=== PATIENT | male | born 1940 | race Caucasian/White ===

== ENCOUNTER → 2018-03-28 | Outpatient (CLI) | payer MEDICARE, BC ==
[~2018-03-28] MED LIST: AMLO5 PO; ASPI81CH PO; ATOR10 PO; FISH OIL 1,0001 EAC1 PO; FLAX PO; GLUCOSAMINE1000 MG PO; Hair, Skin & N1 EACH PO; PRIM50 PO
== END ==
LOC: LAB SHORT 14:49 → PLD 14:49
DX: L57.0 Actinic keratosis (principal)
CPT/HCPCS: 88305

== ENCOUNTER 2019-03-29 08:47 | Day surgery (SDC) | payer MEDICARE, BC ==
[~2019-03-29] VITALS: Ht 172.7 cm; Wt 126.6 kg
--- NOTE | 2019-03-29 09:13 | NUR ---
03/29/19 0913 Efrem Gleason PATIENT DETERMINED TO BE ASA APPROPRIATE FOR PROPOFOL SEDATION PRIOR TO START OF PROCEDURE BY . 3-LEAD EKG REVIEWED WITH PHYSICIAN PRIOR TO START OF PROCEDURE.PATIENT CONFIRMS NPO STATUS AND AGREES WITH SCHEDULED PROCEDURE.History, Chart, Medications and Allergies reviewed before start of procedure.MONITOR INTACT WITH CONTINUOUS PULSE OXIMETRY AND INTERMITTENT BP.O2 VIA N/C INTACT THROUGHOUT SEDATION/PROCEDURE.
[2019-03-29] MEDS ORDERED: PRIM250 PO (09:17)
--- NOTE | 2019-03-29 10:47 | NUR ---
RECEIVED REPORT FROM SARAH ELDRIDGE. ASSUMING CARE OF PT. IS AT BEDSIDE. PT IS SITTING UP DRINKING WATER. STATES NASUEA IS IMPROVIING. VSS.
--- NOTE | 2019-03-29 10:58 | NUR ---
Discharge instructions reviewed with patient. Patient verbalizes understanding. Copy given to patient to take home. HAS D/C PAPERWORK. PT DENIES PAIN. NAUSEA STILL THERE JUST A LITTLE. PT STATES WANTS TO GO HOME. NO QUESTIONS OR CONCERNS VOICED. PT HAS ALL PERSONAL BELONGINGS.
--- NOTE | 2019-03-29 11:04 | NUR ---
Patient States Post-Procedure ride home has been arranged. Discharged via wheelchair to private car for ride home.
== END 2019-03-29 22:39 | disposition home or self-care (01) ==
LOC: ORSCMMR 08:47 → ORD 09:30 → ORSCMMR 22:39
PROVIDERS: Internal Medicine Gastroenterology
PROC: 0DBL8ZX Excision of Transverse Colon, Via Natural or Artificial Opening Endoscopic, Diagnostic (ICD-10-PCS; principal; 2019-03-29 08:45)
PROC: 0DBH8ZX Excision of Cecum, Via Natural or Artificial Opening Endoscopic, Diagnostic (ICD-10-PCS; principal; 2019-03-29 08:45)
DX: Z12.11 Encounter for screening for malignant neoplasm of colon (principal); Z86.010 Personal history of colon polyps; C18.0 Malignant neoplasm of cecum; D12.0 Benign neoplasm of cecum; D12.3 Benign neoplasm of transverse colon; I10 Essential (primary) hypertension; E78.00 Pure hypercholesterolemia, unspecified; G25.0 Essential tremor; Z79.899 Other long term (current) drug therapy; E66.01 Morbid (severe) obesity due to excess calories; Z68.41 Body mass index [BMI] 40.0-44.9, adult
CPT/HCPCS: 88305; J2250; J2405; J3010; J7120

== ENCOUNTER → 2019-05-22 | Outpatient (CLI) | payer MEDICARE, BC ==
[~2019-05-22] MED LIST changes: +Hydrochlorothia25 MG PO; +PRIM250 PO
== END | disposition home or self-care (01) ==
LOC: LAB SHORT 07:52 → PLD 07:52
DX: C43.72 Malignant melanoma of left lower limb, including hip (principal)
CPT/HCPCS: 88305

== ENCOUNTER 2019-07-24 08:05 | Day surgery (SDC) | payer MEDICARE, BC ==
[~2019-07-24] VITALS: Ht 175.3 cm; Wt 127.4 kg
--- NOTE | 2019-07-24 10:10 | NUR ---
History, Chart, Medications and Allergies reviewed before start of procedure. Patient confirms NPO status and agrees with scheduled surgery. Lungs clear T/O to Auscultation. Patient reports completing Chlorhexadine shower X2 prior to admission to hospital. Patient States Post-Procedure ride home has been arranged. Pre-Op teaching done. Pt verbalizes understanding. PATIENT TOOK OFF HIS WATCH AND PLACED WITH HIS BELONGINGS.
--- NOTE | 2019-07-24 14:03 | NUR ---
Discharge instructions reviewed with patient. Patient verbalizes understanding. Copy given to patient to take home. Dressing to procedure site clean, dry, intact with no visible drainage, swelling, erythema or bruising noted. Patient up to Ambulate independently. Gait steady. Discharged via wheelchair to private car for ride home.
== END 2019-07-24 22:40 | disposition home or self-care (01) ==
LOC: NM 08:05 → ORSCMMR 08:05 → NM 09:00
PROVIDERS: Surgery
PROC: 07BJ0ZX Excision of Left Inguinal Lymphatic, Open Approach, Diagnostic (ICD-10-PCS; principal; 2019-07-24 10:15)
PROC: 0HBLXZX Excision of Left Lower Leg Skin, External Approach, Diagnostic (ICD-10-PCS; principal; 2019-07-24 10:15)
PROC: 0HQLXZZ Repair Left Lower Leg Skin, External Approach (ICD-10-PCS; principal; 2019-07-24 10:15)
DX: C43.72 Malignant melanoma of left lower limb, including hip (principal); D36.0 Benign neoplasm of lymph nodes; I10 Essential (primary) hypertension; E66.01 Morbid (severe) obesity due to excess calories; Z68.41 Body mass index [BMI] 40.0-44.9, adult; Z79.899 Other long term (current) drug therapy
CPT/HCPCS: 78195; 88305; 88307; 88341; 88342; A9270-GY; A9541; J0690; J1100; J1885; J2250; J2405; J2704; J3010; J7120; Q9968

== ENCOUNTER 2020-08-19 11:06 | Observation (INO) | payer MEDICARE, BC ==
[~2020-08-19] VITALS: Ht 175.3 cm; Wt 131.5 kg
[2020-08-19 11:31] LABS: BASOPHILS ABSOLUTE AUTO 0.02 K/mm3 (0.00-0.23); BASOPHILS PERCENT AUTO 0 % (0-2); EOSINOPHILS ABSOLUTE AUTO 0.18 K/mm3 (0.00-0.68); EOSINOPHILS PERCENT AUTO 4 % (0-6); Hematocrit 44.9 % (37.0-53.0); Hemoglobin 14.6 g/dL (13.5-17.5); IMMATURE GRAN ABSOLUTE AUTO 0.02 K/mm3 (0.00-0.10); IMMATURE GRAN PERCENT AUTO 0 % (0-1); LYMPHOCYTES ABSOLUTE AUTO 1.51 K/mm3 (0.84-5.20); LYMPHOCYTES PERCENT AUTO 30 % (21-46); MONOCYTES ABSOLUTE AUTO 0.42 K/mm3 (0.16-1.47); MONOCYTES PERCENT AUTO 9 % (4-13); Mean Corpuscular HGB 27.4 pg (26.0-34.0); Mean Corpuscular HGB Conc 32.5 g/dL (31.5-36.5); Mean Corpuscular Volume 84 fL (80-100); Mean Platelet Volume 9.1 fL (9.1-12.4); NEUTROPHILS ABSOLUTE AUTO 2.82 K/mm3 (1.96-9.15); NEUTROPHILS PERCENT AUTO 57 % (41-73); Platelet Count 172 K/mm3 (150-400); RDW Coefficient Variation 14.1 % (11.7-14.2); RDW Standard Deviation 42.8 fL (35.1-46.3); Red Blood Cell Count 5.32 M/mm3 (4.30-5.90); White Blood Cell Count 4.97 K/mm3 (4.00-11.30)
[2020-08-19 11:52] LABS: Alanine Aminotransfer (ALT/SGP 25 U/L (12-78); Albumin, Blood 3.6 g/dL (3.4-5.0); Albumin/Globulin Ratio 0.9 (0.8-1.8); Alk Phos 74 U/L (50-136); Anion Gap 8 mmol/L (6-16); Aspartate Aminotrans (AST/SGOT 21 U/L (12-37); Bilirubin, Total 0.4 mg/dL (0.1-1.0); Blood Urea Nitrogen 20 mg/dL (8-24); Bun/Creatinine Ratio 15.4 (12.0-20.0); CO2, Blood 25 mmol/L (21-32); Calcium, Blood 8.9 mg/dL (8.5-10.1); Chloride, Blood 107 mmol/L (98-108); Globulin, Blood 3.8 g/dL (2.2-4.0); Glomerular Filtration Rate 57 (60-); Glucose, Blood 101 mg/dL (70-99); Potassium, Blood 3.8 mmol/L (3.5-5.5); Sodium, Blood 140 mmol/L (136-145); Total Protein, Blood 7.4 g/dL (6.4-8.2); Troponin I <0.015 ng/mL (0.000-0.040)
[2020-08-19] MEDS ORDERED: Primidone50 MG PO ×2 (16:35→16:36)
[2020-08-19] MEDS ORDERED: PROPRANOLOL HCL80 MG PO (16:36)
[2020-08-19] MEDS ORDERED: Mobic15 MG PO (16:36)
[2020-08-19 17:59] LABS: Source, Urine Voided
[2020-08-19 18:06] LABS: Bilirubin, Urine Neg (Neg); Blood, Urine Neg (Neg); Glucose Qualitative, Urine Neg (Neg); Ketones, Urine Neg (Neg); Leukocyte Esterase, Urine Neg (Neg); Nitrite, Urine Neg (Neg); Protein, Urine Neg (Neg); Specific Gravity, Urine 1.015 (1.003-1.022); Urobilinogen, Urine NORM (Normal)
[2020-08-19 18:15] LABS: Appearance, Urine Clear (Clear); Color, Urine Yellow (P-Yellow)
--- NOTE | 2020-08-19 19:10 | NUR ---
ASSUMED CARE RECEIVED REPORT FROM SARAH GANDHI. ASSUMED CARE OF PT. RESTING COMFORTABLY AT THIS TIME. NO S/S ACUTE DISTRESS NOTED. RESPS E/U. DENIES DIZZINESS AT THIS TIME. DENIES NEEDS. CALL LIGHT, POSSESSIONS IN REACH. CONTINUE TO MONITOR.
--- NOTE | 2020-08-19 19:18 | NUR ---
SHIFT SUMMARY: PATIENT ADMIT (OBS) FROM ED THIS SHIFT. PT A&O; CALM AND COOPERATIVE WITH CARE. NO C/O PAIN \SINCE ARRIVAL ON MEDICAL. PT REPORTS NAUSEA & DIZZINESS UPON STANDING & WITH AMBULATION. LR @ 75 X1L; MRA PLANNED FOR 08/20. REPORT GIVEN TO ONCOMING RN.
[2020-08-20 05:15] LABS: BASOPHILS ABSOLUTE AUTO 0.04 K/mm3 (0.00-0.23); BASOPHILS PERCENT AUTO 1 % (0-2); EOSINOPHILS ABSOLUTE AUTO 0.14 K/mm3 (0.00-0.68); EOSINOPHILS PERCENT AUTO 2 % (0-6); Hematocrit 43.8 % (37.0-53.0); Hemoglobin 14.1 g/dL (13.5-17.5); IMMATURE GRAN ABSOLUTE AUTO 0.02 K/mm3 (0.00-0.10); IMMATURE GRAN PERCENT AUTO 0 % (0-1); LYMPHOCYTES ABSOLUTE AUTO 1.61 K/mm3 (0.84-5.20); LYMPHOCYTES PERCENT AUTO 26 % (21-46); MONOCYTES PERCENT AUTO 8 % (4-13); Mean Corpuscular HGB 27.4 pg (26.0-34.0); Mean Corpuscular HGB Conc 32.2 g/dL (31.5-36.5); Mean Corpuscular Volume 85 fL (80-100); Mean Platelet Volume 9.7 fL (9.1-12.4); NEUTROPHILS ABSOLUTE AUTO 3.98 K/mm3 (1.96-9.15); NEUTROPHILS PERCENT AUTO 63 % (41-73); Platelet Count 203 K/mm3 (150-400); RDW Coefficient Variation 14.2 % (11.7-14.2); RDW Standard Deviation 43.7 fL (35.1-46.3); Red Blood Cell Count 5.15 M/mm3 (4.30-5.90); White Blood Cell Count 6.29 K/mm3 (4.00-11.30)
[2020-08-20 05:48] LABS: Anion Gap 7 mmol/L (6-16); Blood Urea Nitrogen 18 mg/dL (8-24); Bun/Creatinine Ratio 15.8 (12.0-20.0); CO2, Blood 25 mmol/L (21-32); Calcium, Blood 8.6 mg/dL (8.5-10.1); Chloride, Blood 107 mmol/L (98-108); Creatinine, Blood 1.14 mg/dL (0.60-1.20); Glomerular Filtration Rate >60 (60-); Glucose, Blood 98 mg/dL (70-99); Potassium, Blood 3.8 mmol/L (3.5-5.5); Sodium, Blood 139 mmol/L (136-145)
--- NOTE | 2020-08-20 07:46 | NUR ---
SHIFT SUMMARY PT HAS HAD AN UNEVENTFUL NIGHT. SLEPT T/O. VSS. NO C/O DIZZINESS. WAS MONITORED EVERY 1-2 HOURS WITH NEEDS MET. DENIES NEEDS AT THIS TIME. CALL LIGHT, POSSESSIONS IN REACH, WILL CONTINUE TO MONITOR.
--- NOTE | 2020-08-20 09:33 | NUR ---
PT GOT UP AND AMBULATED TO THE RESTROOM THIS AM WITH SBA. UPON GETTING BACK TO THE BED PT REPORTS NAUSEA. PT NOTED TO BE CLAMMY T/O. PT DENIES ANY CHEST PAIN BUT DOES REPORT DIZZINESS. TELE SR AT 62 AT THIS TIME. ORTHOSTATICS COMPLETED AFTERWARDS. PRN ZOFRAN ADMINISTERED.
--- NOTE | 2020-08-20 17:29 | NUR ---
PT TO MRI
--- NOTE | 2020-08-20 18:18 | NUR ---
SHIFT SUMMARY NO ACUTE CHANGES T/O SHIFT. A&OX4. ORTHOSTATIC BP COMPLETED THIS AM PER ORDER, PT REPORTED BECOMING DIZZY FROM THE LYING TO SITTING POSITION. HE ALSO BECAME FAIRLY NAUSEOUS T/O THE SHIFT AND ZOFRAN WAS PROVIDED. MECLIZINE WAS PRESCRIBED FOR POSSIBLE VERTIGO. PT VOMITED SHORTLY AFTER ADMINISTATION OF MECLIZINE SO WE ARE UNABLE TO DETERMINE THE AMOUNT ABSORBED AND IF THIS TREATMENT PLAN WORKED. PT WENT FOR AN MRA AND MRI TODAY WELL. PATIENT ON TELE, RA @ 62.
--- NOTE | 2020-08-21 08:52 | NUR ---
CHEF BROILER OR FRY SUMMARY Patient Continued to have unsteadiness on feet, although once up, [place] does do much better with a Front wheeled walker. He is waiting to stand for one or two minutes, then standing slowly and only with assist. This does seem like when he is most unsteady. Patient stated this morning that he feels much better since starting the scheduled meclizine. hoping to be discharged today
[2020-08-21] MEDS ORDERED: MECL25 PO (11:22)
--- NOTE | 2020-08-21 11:44 | NUR ---
DISCHARGE INSTRUCTIONS REVIEWED WITH PT AND SPOUSE. MED RX FAXED TO [facility]. VERBAL UNDERSTANDING OF INSTRUCTIONS GIVEN BY PT.
== END 2020-08-21 11:36 | disposition home or self-care (01) ==
LOC: ER 11:06 → MEDS 11:07
PROVIDERS: Emergency Medicine; Nurse Practitioner Acute Care; ADMIT Hospitalist
DX: H81.10 Benign paroxysmal vertigo, unspecified ear (principal); E86.0 Dehydration; I12.9 Hypertensive chronic kidney disease with stage 1 through stage 4 chronic kidney disease, or unspecified chronic kidney disease; N18.3 Chronic kidney disease, stage 3 (moderate); E78.5 Hyperlipidemia, unspecified; G25.0 Essential tremor; Z85.038 Personal history of other malignant neoplasm of large intestine; Z85.528 Personal history of other malignant neoplasm of kidney; Z90.49 Acquired absence of other specified parts of digestive tract; Z90.5 Acquired absence of kidney; Z79.899 Other long term (current) drug therapy; E66.01 Morbid (severe) obesity due to excess calories; Z87.891 Personal history of nicotine dependence; E78.00 Pure hypercholesterolemia, unspecified; Z68.29 Body mass index [BMI] 29.0-29.9, adult
CPT/HCPCS: 36415; 70450; 70544; 70551; 80048; 80053; 81003; 84484; 85025; 93005; 93010; 96361; 96372; 96372-59; 96374; 96376; 97110; 97112; 97161; 99285-25; G0378; J1650; J2405; J7030; J7120

== ENCOUNTER 2021-03-25 06:26 | Day surgery (SDC) | payer MEDICARE, BC ==
[~2021-03-25] VITALS: Ht 175.3 cm; Wt 123.6 kg
[~2021-03-25 06:26] MED LIST changes: +MECL25 PO; +Mobic15 MG PO; +PROPRANOLOL HCL80 MG PO; +Primidone50 MG PO
--- NOTE | 2021-03-25 07:52 | NUR ---
Ambulatory in Day Surgery. Patient states colon prep results clear. History, Chart, Medications and Allergies reviewed before start of procedure.Patient confirms NPO status and agrees with scheduled surgery. Pre-Op teaching done. Pt verbalizes understanding. Patient States Post-Procedure ride home has been arranged.
--- NOTE | 2021-03-25 08:06 | NUR ---
03/25/21 0806 Francia Villalta History, Chart, Medications and Allergies reviewed before start of procedure. Patient confirms NPO status and agrees with scheduled surgery. PATIENT DETERMINED TO BE ASA APPROPRIATE FOR FENTANYL/VERSED SEDATION PRIOR TO START OF PROCEDURE BY . 3-LEAD EKG REVIEWED WITH PHYSICIAN PRIOR TO START OF PROCEDURE. MONITOR INTACT WITH CONTINUOUS PULSE OXIMETRY AND INTERMITTENT BP. SUPPLEMENTAL O2 TO BE TITRATED THROUGHOUT PROCEDURE TO MAINTAIN O2 SATURATION ABOVE 90%.
--- NOTE | 2021-03-25 09:07 | NUR ---
Discharge instructions reviewed with patient. Patient verbalizes understanding. Copy given to patient to take home. Patient States Post-Procedure ride home has been arranged. Discharged via wheelchair to private car for ride home.
== END 2021-03-25 23:00 | disposition home or self-care (01) ==
LOC: ORSCMMR 06:26 → ORD 08:00 → ORSCMMR 23:00
PROVIDERS: Internal Medicine Gastroenterology
PROC: 0DBN8ZX Excision of Sigmoid Colon, Via Natural or Artificial Opening Endoscopic, Diagnostic (ICD-10-PCS; principal; 2021-03-25 08:00)
PROC: 0DBB8ZX Excision of Ileum, Via Natural or Artificial Opening Endoscopic, Diagnostic (ICD-10-PCS; principal; 2021-03-25 08:00)
DX: Z85.038 Personal history of other malignant neoplasm of large intestine (principal); Z85.820 Personal history of malignant melanoma of skin; Z85.53 Personal history of malignant neoplasm of renal pelvis; K63.5 Polyp of colon; I10 Essential (primary) hypertension; E78.00 Pure hypercholesterolemia, unspecified; Z79.899 Other long term (current) drug therapy; E66.01 Morbid (severe) obesity due to excess calories; Z68.41 Body mass index [BMI] 40.0-44.9, adult
CPT/HCPCS: 88305; J2250; J3010; J7120